=== PATIENT | male | born 1975 | race Caucasian/White ===

== ENCOUNTER 2017-08-15 15:40 | Emergency (ER) | payer SELFPAY ==
[~2017-08-15] VITALS: Ht 170.2 cm; Wt 63.5 kg
[2017-08-15 16:03] VITALS: BP 136/92
[2017-08-15] MEDS ORDERED: HYDR-971 PO (16:22)
--- NOTE | 2017-08-15 16:22 | PHYS DOC ---
Adult General Chief Complaint Chief Complaint: ABDOMINAL PAIN [facility] HPI Patient is a 41 year old male who presents with complaint of right groin pain. Patient states that he has history of a right inguinal hernia. 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 The patient currently works at a gas station. Patient states that he does not have insurance currently and has not been able to see a general surgeon to get this repaired. Patient states he started having worsening pain over the past 24 hours. Patient states that the hernia typically has been reducible, however he states that it has become larger and more difficult to reduce today. Patient denies any associated fever, vomiting, however he does state that he is having pain up into his abdomen. Patient states that the hernia is very painful to touch and rates his pain currently on my evaluation as 8 out of 10. Patient has not taken any medications for his symptoms at this time. Review of Systems Review of Systems Constitutional: Denies fever or chills [] Eyes: Denies change in visual acuity, redness, or eye pain [] HENT: Denies nasal congestion or sore throat [] Respiratory: Denies cough or shortness of breath [] Cardiovascular: No additional information not addressed in HPI [] GI: Abdominal pain, denies nausea, vomiting, bloody stools or diarrhea [] : Right groin pain[] Musculoskeletal: Denies back pain or joint pain [] Integument: Denies rash or skin lesions [] Neurologic: Denies headache, focal weakness or sensory changes [] Endocrine: Denies polyuria or polydipsia [] All other systems were reviewed and found to be within normal limits, except as documented in this note. Allergies Allergies Allergies Coded Allergies Type Severity Reaction Last Updated Verified hydrocodone Allergy Unknown Itching 08/15/17 Yes Physical Exam Physical Exam Constitutional: Alert, afebrile, appears in mild to moderate discomfort[] HENT: Normocephalic, atraumatic, bilateral external ears normal, oropharynx moist, no oral exudates, nose normal. [] Eyes: PERRLA, EOMI, conjunctiva normal, no discharge. [] Neck: Normal range of motion, no tenderness, supple, no stridor. [] Cardiovascular:Heart rate regular rhythm, no murmur [] Lungs & Thorax: Bilateral breath sounds clear to auscultation [] Abdomen: Bowel sounds normal, soft, no tenderness, no masses, no pulsatile masses. : Patient circumcised, mass present and right inguinal canal that is painful to touch, reducible with persistent tension, cremasteric reflexes intact[] Skin: Warm, dry, no erythema, no rash. [] Back: No tenderness, no CVA tenderness. [] Extremities: No tenderness, no cyanosis, no clubbing, ROM intact, no edema. [] Neurologic: Alert and oriented X 3, normal motor function, normal sensory function, no focal deficits noted. [] Current Patient Data Vital Signs Vital Signs Date Time Temp Pulse Resp B/P (MAP) Pulse Ox O2 Delivery O2 Flow Rate FiO2 08/15/17 16:03 98.5 90 18 100 Room Air Lab Results Not performed EKG EKG Not performed[] Radiology/Procedures Radiology/Procedures Not performed[] Course & Med Decision Making Course & Med Decision Making Pertinent Labs and Imaging studies reviewed. (See chart for details) The patient has an inguinal hernia that was able to be reduced during the examination. After the examination, patient states that his abdominal pain has significantly improved and he is feeling better at this time. I explained to the patient that he would need to follow-up with general surgery as he is at high risk for having an incarcerated or possibly strangulated hernia if he delays operative therapy and recommended that he follow-up in the next 1-[address] Jenkins of general surgery. I also recommended use of ice packs as needed to help reduce swelling and help him to reduce his hernia if reoccurrence takes place. Advised return emergency department for any worsening symptoms. Patient voiced understanding and in agreement with treatment plan. Dragon Disclaimer Dragon Disclaimer This electronic medical record was generated, in whole or in part, using a voice recognition dictation system. Departure Departure: Impression: Primary Impression: Right inguinal hernia Disposition: HOME, SELF-CARE Condition: IMPROVED Referrals: PCP,AVA (PCP) GERARD JENKINS MD Patient Instructions: Inguinal Hernia, Adult Additional Instructions: Follow-up in the office of Dr. Jenkins in the next 1-2 weeks for follow-up of your hernia. Return to the emergency department for any worsening symptoms. Scripts Hydrocodone Bit/Acetaminophen (NORCO 5-325 TABLET) 1 Each Tablet 1-2 TAB PO Q4-6HRS Y for PAIN, #15 TAB Prov: AQUILINO NGUYEN MD 08/15/17 AQUILINO NGUYEN MD Aug 15, 2017 16:22
== END 2017-08-15 16:28 | disposition home or self-care (01) ==
LOC: ER 15:40
DX: K40.90 Unilateral inguinal hernia, without obstruction or gangrene, not specified as recurrent (principal); Z88.5 Allergy status to narcotic agent
CPT/HCPCS: 99283